=== PATIENT | female | born 1955 | race Caucasian/White ===

== ENCOUNTER 2017-12-12 12:28 | Emergency (ER) | payer OTHER ==
[~2017-12-12] VITALS: Ht 157.5 cm; Wt 59.0 kg
--- NOTE | 2017-12-12 13:31 | Diagnostic Imaging Report ---
Wrist Complete Left CPT Code: 37278 Indication: Fall, pain Technique: Three views left wrist obtained. Comparison: None Findings: The osseous structures are well developed and mineralized. No fractures or dislocations. No radio-opaque foreign bodies in the soft tissues. IMPRESSION: No evidence of displaced fracture or dislocation involving the wrist. Signed by: Dr. Chris Chavez MD on 12/12/2017 1:27 PM
[2017-12-12 13:51] VITALS: BP 163/89
== END 2017-12-12 13:53 | disposition home or self-care (01) ==
LOC: ER 12:28
DX: S63.522A Sprain of radiocarpal joint of left wrist, initial encounter (principal); W18.30XA Fall on same level, unspecified, initial encounter; Y92.008 Other place in unspecified non-institutional (private) residence as the place of occurrence of the external cause; Z85.038 Personal history of other malignant neoplasm of large intestine
CPT/HCPCS: 99283